=== PATIENT | female | born 2000 | race American Indian/Alaskan Native ===

== ENCOUNTER 2020-11-22 01:42 | Emergency (ER) | payer SELFPAY ==
[2020-11-22] MEDS ORDERED: ONDANSETRON 4 MG/2 ML INJ IV ONE (02:31)
[2020-11-22] MEDS ORDERED: MORPHINE 4 MG/1 ML INJ IV ONE (02:31)
[2020-11-22] MEDS ORDERED: SODIUM CHLORIDE 0.9% 1000 ML 1,000 ML IV ONE (02:31)
[2020-11-22 03:30] LABS: Basophils % (Auto) 0.8 % (0.0-1.8); Eosinophils # (Auto) 0.1 K/mm3 (0.0-0.4); Eosinophils % (Auto) 1.9 % (0.0-4.3); Hematocrit 31.8 % (30.3-42.9); Hemoglobin 10.7 gm/dl (10.1-14.3); Lymphocytes # (Auto) 1.6 K/mm3 (1.2-5.4); Lymphocytes % (Auto) 45.9 % (13.4-35.0); Mean Corpuscular HGB Conc 34 % (30-34); Mean Corpuscular Volume 82 fl (79-97); Monocytes # (Auto) 0.4 K/mm3 (0.0-0.8); Platelet Count 206 K/mm3 (140-440); Red Blood Count 3.88 M/mm3 (3.65-5.03); Red Cell Distribution Width 15.9 % (13.2-15.2)
[2020-11-22] MEDS ORDERED: KETOROLAC 30 MG/1 ML INJ IV ONE (03:37)
[2020-11-22 03:48] LABS: Alanine Aminotransferase 10 units/L (7-56); Albumin 4.4 g/dL (3.9-5); Blood Urea Nitrogen 14 mg/dL (7-17); Calcium 9.2 mg/dL (8.4-10.2); Hemolysis Index 6
[2020-11-22 03:55] LABS: BUN/Creatinine Ratio 20
[2020-11-22 04:15] LABS: Bilirubin,Urine NEG (Negative); Blood,Urine NEG (Negative); Color,Urine Yellow (Yellow); Mucus,Urine FEW /HPF; Protein,Urine <15 mg/dL mg/dL (Negative)
--- NOTE | 2020-11-22 05:03 | Cat Scan Report ---
CT ABDOMEN AND PELVIS WITH CONTRAST INDICATION: Diffuse lower abdominal pain. TECHNIQUE: Axial CT images were obtained through the abdomen and pelvis after 100 cc IV contrast. All CT scans at this location are performed using CT dose reduction for ALARA by means of automated exposure contr ol. COMPARISON: None available. FINDINGS: LOWER CHEST: No significant abnormality. LIVER: No significant abnormality. GALLBLADDER: No significant abnormality. BILE DUCTS: No significant abnormality. PANCREAS: No significant abnormality. SPLEEN: No significant abnormality. ADRENALS: No significant abnormality. RIGHT KIDNEY and URETER: No significant abnormality. LEFT KIDNEY and URETER: No significant abnormality. STOMACH and SMALL BOWEL: No significant abnormality. COLON: No significant abnormality. APPENDIX: Normal PERITONEUM: Small amount of right-sided free pelvic fluid No free air. No fluid collection. LYMPH NODES: No significant adenopathy. AORTA and ARTERIES: No significant abnormality. IVC and VEINS: No significant abnormality. URINARY BLADDER: No significant abnormality. REPRODUCTIVE ORGANS: 1.7 cm right ovarian corpus luteal cyst ADDITIONAL FINDINGS: None. SKELETAL SYSTEM: No significant abnormality. IMPRESSION: 1. 1.7 cm right ovarian corpus luteal cyst with small amount of right-sided free pelvic fluid. 2. No CT evidence for appendicitis or other acute inflammatory process Signer Name: Michael York MD Signed: 11/22/2020 4:59 AM Workstation Name: [id number]
--- NOTE | 2020-11-22 05:29 | Emergency Department Report ---
ED Abdominal Pain HPI - General Chief Complaint: Abdominal Pain Stated Complaint: ABDOMINAL PAIN Source: patient Mode of arrival: Ambulatory Limitations: No Limitations - History of Present Illness Initial Comments: Patient is a nulliparous 19-year-old -Maltese female with no past medical history presents to the ED with complaint of acute onset persistent severe diffuse lower abdominal pain for the last 2 weeks. Patient states that initially the pain was mild but subsequently the pain progressively got worse such that she has not been able to sleep in the last 8 hours. Patient denies dysuria, urinary frequency and urgency, constipation, chest pain or shortness of breath, fever, chills, vaginal bleeding, vaginal discharge, low back pain, diarrhea or sore throat, traumatic injury or heavy lifting. MD Complaint: abdominal pain (Diffuse low abdominal pain) -: Sudden, week(s) (2) Location: LLQ, RLQ, suprapubic Radiation: LLQ, RLQ, suprapubic Migration to: no migration Severity: severe Severity scale (0 -10): 9 Quality: aching, sharp Consistency: constant Improves With: nothing Worsens With: nothing Associated Symptoms: denies other symptoms, anorexia. denies: nausea, vomiting, diarrhea, fever, chills, constipation, dysuria, hematemesis, hematochezia, brooke cleve, hematuria, syncope, other - Related Data LMP Date: 11/08/20 Previous Rx's Medication Instructions Recorded Last Taken Type Acetaminophen/Codeine [Tylenol #3] 1 tab PO Q6H PRN #10 tab 10/09/15 Unknown Rx Ibuprofen [Motrin] 600 mg PO Q8H PRN #30 tablet 11/22/20 Unknown Rx Ondansetron [Zofran Odt] 4 mg PO Q6HR PRN #20 tab.rapdis 11/22/20 Unknown Rx traMADoL [Ultram] 50 mg PO Q6HR PRN #12 tablet 11/22/20 Unknown Rx Allergies Allergy/AdvReac Type Severity Reaction Status Date / Time No Known Allergies Allergy Verified 11/22/20 02:18 ED Review of Systems ROS: Stated complaint: ABDOMINAL PAIN Other details as noted in HPI Constitutional: denies: chills, fever Eyes: denies: eye pain, eye discharge, vision change ENT: denies: ear pain, throat pain Respiratory: denies: cough, shortness of breath, wheezing Cardiovascular: denies: chest pain, palpitations Endocrine: no symptoms reported Gastrointestinal: abdominal pain (Diffuse low abdominal pain). denies: nausea, vomiting, diarrhea, constipation, hematemesis, hematochezia Genitourinary: denies: urgency, dysuria, discharge Musculoskeletal: denies: back pain, joint swelling, arthralgia Skin: denies: rash, lesions Neurological: denies: headache, weakness, paresthesias Psychiatric: denies: anxiety, depression Hematological/Lymphatic: denies: easy bleeding, easy bruising ED Past Medical Hx - Past Medical History Previous Medical History?: No - Surgical History Past Surgical History?: No - Social History Smoking Status: Never Smoker Substance Use Type: None - Medications Home Medications: Home Medications Medication Instructions Recorded Confirmed Last Taken Type Acetaminophen/Codeine [Tylenol #3] 1 tab PO Q6H PRN #10 tab 10/09/15 Unknown Rx Ibuprofen [Motrin] 600 mg PO Q8H PRN #30 tablet 11/22/20 Unknown Rx Ondansetron [Zofran Odt] 4 mg PO Q6HR PRN #20 tab.rapdis 11/22/20 Unknown Rx traMADoL [Ultram] 50 mg PO Q6HR PRN #12 tablet 11/22/20 Unknown Rx ED Physical Exam - General Limitations: No Limitations General appearance: alert, in no apparent distress - Head Head exam: Present: atraumatic, normocephalic, normal inspection - Eye Eye exam: Present: normal appearance, PERRL, EOMI Pupils: Present: normal accommodation - ENT ENT exam: Present: normal exam, normal orophraynx, mucous membranes moist, TM's normal bilaterally, normal external ear exam - Neck Neck exam: Present: normal inspection, full ROM - Respiratory Respiratory exam: Present: normal lung sounds bilaterally. Absent: respiratory distress, wheezes, rales, rhonchi, chest wall tenderness, accessory muscle use, decreased breath sounds, prolonged expiratory - Cardiovascular Cardiovascular Exam: Present: regular rate, normal rhythm, normal heart sounds. Absent: systolic murmur, diastolic murmur, rubs, gallop - GI/Abdominal GI/Abdominal exam: Present: soft, tenderness (Palpable diffuse lower abdominal tenderness, no guarding or rebound), normal bowel sounds. Absent: guarding, rebound, hyperactive bowel sounds, hypoactive bowel sounds - Bi-manual exam: Present: other (Pelvic exam deferred, patient not sexually active since ) - Extremities Exam Extremities exam: Present: normal inspection, full ROM, normal capillary refill - Back Exam Back exam: Present: normal inspection, full ROM. Absent: tenderness, CVA tender ness (R), CVA tenderness (L), muscle spasm, paraspinal tenderness, vertebral tenderness - Neurological Exam Neurological exam: Present: alert, oriented X3, CN II-XII intact, normal gait, reflexes normal - Psychiatric Psychiatric exam: Present: normal affect, normal mood - Skin Skin exam: Present: warm, dry, intact, normal color. Absent: rash ED Course Vital Signs 11/22/20 02:11 Temperature 99.4 F Pulse Rate 84 Respiratory 24 Rate Blood Pressure 125/69 O2 Sat by Pulse 99 Oximetry ED Medical Decision Making - Lab Data Result diagrams: 11/22/20 02:49 11/22/20 02:49 - Radiology Data Radiology results: report reviewed, [place] [address] Cat Scan Report Signed Patient: DOUGLAS CARDENAS MR#: [id number] : 2000 Acct:[id number] Age/Sex: 19 / F ADM Date: 11/22/20 Loc: ED Attending Dr: Ordering Physician: SONALI MARCOS Date of Service: 11/22/20 Procedure(s): CT abdomen pelvis w con Accession Number(s): [id number] cc: SONALI MARCOS CT ABDOMEN AND PELVIS WITH CONTRAST INDICATION: Diffuse lower abdominal pain. TECHNIQUE: Axial CT images were obtained through the abdomen and pelvis after 100 cc IV contrast. All CT scans at this location are performed using CT dose reduction for ALARA by means of automated exposure control. COMPARISON: None available. FINDINGS: LOWER CHEST: No significant abnormality. LIVER: No significant abnormality. GALLBLADDER: No significant abnormality. BILE DUCTS: No significant abnormality. PANCREAS: No significant abnormality. SPLEEN: No significant abnormality. ADRENALS: No significant abnormality. RIGHT KIDNEY and URETER: No significant abnormality. LEFT KIDNEY and URETER: No significant abnormality. STOMACH and SMALL BOWEL: No significant abnormality. COLON: No significant abnormality. APPENDIX: Normal PERITONEUM: Small amount of right-sided free pelvic fluid No free air. No fluid collection. LYMPH NODES: No significant adenopathy. AORTA and ARTERIES: No significant abnormality. IVC and VEINS: No significant abnormality. URINARY BLADDER: No significant abnormality. REPRODUCTIVE ORGANS: 1.7 cm right ovarian corpus luteal cyst ADDITIONAL FINDINGS: None. SKELETAL SYSTEM: No significant abnormality. IMPRESSION: 1. 1.7 cm right ovarian corpus luteal cyst with small amount of right-sided free pelvic fluid. 2. No CT evidence for appendicitis or other acute inflammatory process Signer Name: Michael York MD Signed: 11/22/2020 4:59 AM Workstation Name: [id number] Transcribed By: DANIEL Dictated By: Michael York MD Electronically Authenticated By: Michael York MD Signed Date/Time: 11/22/20458 DD/ 6 TD/TT: Print Cancel - Medical Decision Making This is a nulliparous 19-year-old -Maltese female with no past medical history presents to the ED with complaint of acute onset persistent severe diffuse lower abdominal pain for the last 2 weeks. Patient states that initially the pain was mild but subsequently the pain progressively got worse such that she has not been able to sleep in the last 8 hours. In the ED, patient is alert and oriented x3 and is not in any distress. Patient however appears to be in significant pain. Lab test results were reviewed and are all nonactionable including urinalysis. Patient was treated for pain in the ED and also given normal saline 1 L IV bolus x1. Abdomen pelvis CT scan with contrast showed a 1.7 cm right ovarian corpus luteal cyst with small amount of right- sided free pelvic fluid. Otherwise no CT evidence for appendicitis or other acute inflammatory process. On reevaluation, patient's pain is well controlled medication. Patient will discharge home on pain medications and given a referral to the [facility] physician for follow-up in 3 to 5 days for reevaluation. Patient is advised to return to the ED immediately if symptoms get worse. - Differential Diagnosis Ovarian cyst; ; UTI; appendicitis; constipation; dysmenorrhea Critical care attestation.: If time is entered above; I have spent that time in minutes in the direct care of this critically ill patient, excluding procedure time. ED Disposition Clinical Impression: Abdominal pain, bilateral lower quadrant, Right ovarian cyst Disposition: HOME / SELF CARE / HOMELESS Is pt being admited?: No Does the pt Need Aspirin: No Condition: Stable Instructions: Abdominal Pain (ED), Ovarian Cyst, [id number], Abdominal Pain, Adult, [id number] Additional Instructions: All lab test results were reviewed and are all nonactionable. Abdomen pelvis CT scan with contrast showed a 1.7 cm right ovarian corpus luteal cyst with small amount of right-sided free pelvic fluid. No no other CT evidence for appendicitis or other acute inflammatory process was observed. Therefore your symptoms are likely due to the right ovarian cyst., Therefore take medications as needed for pain with food, drink plenty of fluids and follow-up with the [facility] physician Dr. Jerome as advised. Return to the ED immediately if symptoms get worse. Prescriptions: Ibuprofen [Motrin] 600 mg PO Q8H PRN #30 tablet PRN Reason: Pain traMADoL [Ultram] 50 mg PO Q6HR PRN #12 tablet PRN Reason: Severe pain Ondansetron [Zofran Odt] 4 mg PO Q6HR PRN #20 tab.rapdis PRN Reason: Nausea Referrals: LAUREN JEROME MD [Staff Physician] - 3-5 Days Time of Disposition: 05:32 Print Language: FIJIAN
[2020-11-22 06:31] VITALS: BP 125/73
== END 2020-11-22 06:30 | disposition home or self-care (01) ==
LOC: ED 01:42
DX: N83.201 Unspecified ovarian cyst, right side (principal); Z79.899 Other long term (current) drug therapy
CPT/HCPCS: 36415; 74177; 80053; 81001; 83690; 84703; 85025; 96361; 96374; 96375; 99284; J1885; J2270; J2405; J7030; Q9967

== ENCOUNTER 2021-06-17 21:30 | Emergency (ER) | payer SELFPAY ==
--- NOTE | 2021-06-17 22:47 | Emergency Department Report ---
ED General Adult HPI - General Stated complaint: MENTAL HEALTH CONCERNS PUI?: No Time Seen by Provider: 06/17/21 22:37 Source: family - History of Present Illness Initial comments: HPI OBTAIN FROM MOTHER WHO IS A POOR HISTORIAN STATES HER GRANDSON (ANOTHER DAUGHTER'S KID) ABOUT 3 WEEKS AGO AND TODAY PATIENT STATES SHE SEES PEOPLE AND ALSO THE GRANDSON. PER MOTHER AND NURSE, PATIENT REFUSES TO TALK TO ANYONE DURING MY ENCOUNTER, PATIENT REFUSES TO TALK TO ME OR FOLLOW ANY COMMANDS. - Related Data Previous Rx's Medication Instructions Recorded Last Taken Type Acetaminophen/Codeine [Tylenol #3] 1 tab PO Q6H PRN #10 tab 10/09/15 Unknown Rx Ibuprofen [Motrin] 600 mg PO Q8H PRN #30 tablet 11/22/20 Unknown Rx Ondansetron [Zofran Odt] 4 mg PO Q6HR PRN #20 tab.rapdis 11/22/20 Unknown Rx traMADoL [Ultram] 50 mg PO Q6HR PRN #12 tablet 11/22/20 Unknown Rx Allergies Allergy/AdvReac Type Severity Reaction Status Date / Time No Known Allergies Allergy Verified 11/22/20 02:18 ED Review of Systems ROS: Stated complaint: MENTAL HEALTH CONCERNS Other details as noted in HPI Comment: Unobtainable due to pts medical conditions (PATIENT REFUSES TO TALK TO ME) Constitutional: no symptoms reported ED Past Medical Hx - Past Medical History Previous Medical History?: Yes - Social History Smoking Status: Never Smoker Substance Use Type: None - Medications Home Medications: Home Medications Medication Instructions Recorded Confirmed Last Taken Type Acetaminophen/Codeine [Tylenol #3] 1 tab PO Q6H PRN #10 tab 10/09/15 Unknown Rx Ibuprofen [Motrin] 600 mg PO Q8H PRN #30 tablet 11/22/20 Unknown Rx Ondansetron [Zofran Odt] 4 mg PO Q6HR PRN #20 tab.rapdis 11/22/20 Unknown Rx traMADoL [Ultram] 50 mg PO Q6HR PRN #12 tablet 11/22/20 Unknown Rx ED Physical Exam - General General appearance: alert, in no apparent distress - Head Head exam: Present: atraumatic, normocephalic, normal inspection - Eye Eye exam: Present: normal appearance, PERRL, EOMI Pupils: Present: normal accommodation - Neck Neck exam: Present: full ROM (PATIENT WALKING AROUND) - Extremities Exam Extremities exam: Present: normal inspection, full ROM, other (PATIENT WALKING AROUND IN NO SIGNS OF DISCOMFORT) - Back Exam Back exam: Present: full ROM - Neurological Exam Neurological exam: Present: alert, CN II-XII intact, normal gait - Psychiatric Psychiatric exam: Present: other (REFUSES TO TALK) ED Course Vital Signs 06/17/21 23:37 Temperature 98 F Pulse Rate 86 Respiratory 16 Rate Blood Pressure 128/88 [Right] O2 Sat by Pulse 100 Oximetry - Reevaluation(s) Reevaluation #1: 06/18/21 04:46 PATIENT IS MEDICALLY CLEARED; PENDING MENTAL HEALTH EVALUATION. AT 0600, I WILL SIGN OUT MY PATIENT CARE TO MY COLLEAGUE DR. PRUITT 06/18/21 05:51 STILL PENDING MENTAL HEALTH EVALUATION; WILL SIGN OUT TO MY COLLEAGUE DR. PRUITT ED Medical Decision Making - Lab Data Result diagrams: 06/17/21 23:37 06/17/21 23:37 Critical care attestation.: If time is entered above; I have spent that time in minutes in the direct care of this critically ill patient, excluding procedure time. ED Disposition Clinical Impression: Visual hallucination Condition: Stable Referrals: CATHRYN VENEGAS MD [Primary Care Provider] - 3-5 Days
[2021-06-18 00:03] LABS: Basophils % (Auto) 0.5 % (0.0-1.8); Eosinophils % (Auto) 0.1 % (0.0-4.3); Hematocrit 35.7 % (30.3-42.9); Hemoglobin 11.4 gm/dl (10.1-14.3); Lymphocytes % (Auto) 18.2 % (13.4-35.0); Mean Corpuscular HGB Conc 32 % (30-34); Mean Corpuscular Volume 81 fl (79-97); Monocytes # (Auto) 0.4 K/mm3 (0.0-0.8); Monocytes % (Auto) 8.4 % (0.0-7.3); Platelet Count 229 K/mm3 (140-440); Red Cell Distribution Width 17.7 % (13.2-15.2)
[2021-06-18 00:19] LABS: Alanine Aminotransferase 9 units/L (7-56); Albumin 4.9 g/dL (3.9-5); BUN/Creatinine Ratio 14; Blood Urea Nitrogen 11 mg/dL (7-17); Calcium 9.1 mg/dL (8.4-10.2); Hemolysis Index 2
--- NOTE | 2021-06-18 09:28 | Consultation ---
History of Present Illness - Reason for Consult Consult date: 06/18/21 Reason for consult: hallucinating - History of Present Psychiatric Illness HPI: HPI OBTAIN FROM MOTHER WHO IS A POOR HISTORIAN STATES HER GRANDSON (ANOTHER DAUGHTER'S KID) ABOUT 3 WEEKS AGO AND TODAY PATIENT STATES SHE SEES PEOPLE AND ALSO THE GRANDSON. PER MOTHER AND NURSE, PATIENT REFUSES TO TALK TO ANYONE. During my encounter with this patient, she is sitting in the seclusion room. She is awake and sitting erect with linen over her head. She does not speak to me or acknowledge my presence when I call her name. She does shift positions, but does not respond. Will start med management and recommend inpatient psych treatment based on report from mother. PAST PSYCHIATRIC HISTORY Unable to obtain PAST MEDICAL HISTORY: None reported Family Psychiatric History: None reported or documented SOCIAL HISTORY Unable to obtain REVIEW OF SYSTEMS Unable to obtain MENTAL STATUS EXAMINATION Unable to obtain Assessment and Plan Delusional Disorder Treatment Plan 1013 Start Olanzapine 5mg po daily Start Doxepin 10mg po qhs Medical: Per primary Sitter: Defer to primary Disposition: Recommend acute psychiatric inpatient treatment. Will follow. Thanks. Case staffed with Dr. Velasco Medications and Allergies Allergies Allergy/AdvReac Type Severity Reaction Status Date / Time No Known Allergies Allergy Verified 11/22/20 02:18 Home Medications Medication Instructions Recorded Confirmed Last Taken Type Acetaminophen/Codeine [Tylenol #3] 1 tab PO Q6H PRN #10 tab 10/09/15 Unknown Rx Ibuprofen [Motrin] 600 mg PO Q8H PRN #30 tablet 11/22/20 Unknown Rx Ondansetron [Zofran Odt] 4 mg PO Q6HR PRN #20 tab.rapdis 11/22/20 Unknown Rx traMADoL [Ultram] 50 mg PO Q6HR PRN #12 tablet 11/22/20 Unknown Rx Mental Status Exam - Vital signs Last Vital Signs Temp 98 F 06/17/21 23:37 Pulse 86 06/17/21 23:37 Resp 16 06/17/21 23:37 BP 128/88 06/17/21 23:37 Pulse Ox 97 06/18/21 08:15 Results Result Diagrams: 06/17/21 23:37 06/17/21 23:37 Abnormal lab results 06/17/21 06/17/21 Range/Units 23:37 23:37 MCH 26 L (28-32) pg RDW 17.7 H (13.2-15.2) % Gem % (Auto) 8.4 H (0.0-7.3) % Lymph # (Auto) 1.0 L (1.2-5.4) K/mm3 Seg Neutrophils % 72.8 H (40.0-70.0) % Carbon Dioxide 21 L (22-30) mmol/L All other labs normal.
[2021-06-18] MEDS ORDERED: LORazepam 2 MG/ML VIAL IM PRN (14:57)
[2021-06-18] MEDS ORDERED: HALOPERIDOL LACTATE 5 MG/1 ML INJ IM PRN (14:57)
--- NOTE | 2021-06-18 15:01 | Event Note ---
Date: 06/18/21 [id number] evaluation performed. Patient sitting down, breathing spontaneously, and in no acute distress. She is refusing vital signs and refu sing to provide a urine sample. She is currently on a 1013. Serum Tylenol, aspirin, test have not been obtained. COVID swab was obtained. Patient is in seclusion for attempting to scratch and assault nursing staff members, and attempting to run away. This patient does not respond to verbal de-escalation techniques or show of force. Nursing team is instructed to obtain repeat vital signs, and patient will be medicated with as needed haloperidol and Ativan if necessary. Follow-up on serum hCG, Tylenol, aspirin levels. Vital Signs 06/17/21 06/18/21 23:37 08:15 Temperature 98 F Pulse Rate 86 Respiratory 16 Rate Blood Pressure 128/88 [Right] O2 Sat by Pulse 100 97 Oximetry Lab Results 06/17/21 06/17/21 06/18/21 Range/Units 23:37 23:37 10:11 WBC 5.2 (4.5-11.0) K/mm3 RBC 4.40 (3.65-5.03) M/mm3 Hgb 11.4 (10.1-14.3) gm/dl Hct 35.7 (30.3-42.9) % MCV 81 (79-97) fl MCH 26 L (28-32) pg MCHC 32 (30-34) % RDW 17.7 H (13.2-15.2) % Plt Count 229 (140-440) K/mm3 Lymph % (Auto) 18.2 (13.4-35.0) % Taylor % (Auto) 8.4 H (0.0-7.3) % Eos % (Auto) 0.1 (0.0-4.3) % Baso % (Auto) 0.5 (0.0-1.8) % Lymph # (Auto) 1.0 L (1.2-5.4) K/mm3 Taylor # (Auto) 0.4 (0.0-0.8) K/mm3 Eos # (Auto) 0.0 (0.0-0.4) K/mm3 Baso # (Auto) 0.0 (0.0-0.1) K/mm3 Seg Neutrophils % 72.8 H (40.0-70.0) % Seg Neutrophils # 3.8 (1.8-7.7) K/mm3 Sodium 139 (137-145) mmol/L Potassium 3.7 (3.6-5.0) mmol/L Chloride 100.7 (98-107) mmol/L Carbon Dioxide 21 L (22-30) mmol/L Anion Gap 21 mmol/L BUN 11 (7-17) mg/dL Creatinine 0.8 (0.6-1.2) mg/dL Estimated GFR > 60 ml/min BUN/Creatinine Ratio 14 % Glucose 85 (65-100) mg/dL Calcium 9.1 (8.4-10.2) mg/dL Total Bilirubin 0.50 (0.1-1.2) mg/dL AST 17 (5-40) units/L ALT 9 (7-56) units/L Alkaline Phosphatase 48 (35-129) units/L Total Protein 7.3 (6.3-8.2) g/dL Albumin 4.9 (3.9-5) g/dL Albumin/Globulin Ratio 2.0 % SARS-CoV-2 (PCR) Negative (Negative) Lab Results 06/17/21 06/17/21 06/18/21 Range/Units 23:37 23:37 10:11 WBC 5.2 (4.5-11.0) K/mm3 RBC 4.40 (3.65-5.03) M/mm3 Hgb 11.4 (10.1-14.3) gm/dl Hct 35.7 (30.3-42.9) % MCV 81 (79-97) fl MCH 26 L (28-32) pg MCHC 32 (30-34) % RDW 17.7 H (13.2-15.2) % Plt Count 229 (140-440) K/mm3 Lymph % (Auto) 18.2 (13.4-35.0) % Taylor % (Auto) 8.4 H (0.0-7.3) % Eos % (Auto) 0.1 (0.0-4.3) % Baso % (Auto) 0.5 (0.0-1.8) % Lymph # (Auto) 1.0 L (1.2-5.4) K/mm3 Taylor # (Auto) 0.4 (0.0-0.8) K/mm3 Eos # (Auto) 0.0 (0.0-0.4) K/mm3 Baso # (Auto) 0.0 (0.0-0.1) K/mm3 Seg Neutrophils % 72.8 H (40.0-70.0) % Seg Neutrophils # 3.8 (1.8-7.7) K/mm3 Sodium 139 (137-145) mmol/L Potassium 3.7 (3.6-5.0) mmol/L Chloride 100.7 (98-107) mmol/L Carbon Dioxide 21 L (22-30) mmol/L Anion Gap 21 mmol/L BUN 11 (7-17) mg/dL Creatinine 0.8 (0.6-1.2) mg/dL Estimated GFR > 60 ml/min BUN/Creatinine Ratio 14 % Glucose 85 (65-100) mg/dL Calcium 9.1 (8.4-10.2) mg/dL Total Bilirubin 0.50 (0.1-1.2) mg/dL AST 17 (5-40) units/L ALT 9 (7-56) units/L Alkaline Phosphatase 48 (35-129) units/L Total Protein 7.3 (6.3-8.2) g/dL Albumin 4.9 (3.9-5) g/dL Albumin/Globulin Ratio 2.0 % HCG, Quant (0-4) mIU/mL Urine Bilirubin (Negative) Urine RBC (Auto) (0.0-6.0) /HPF U Epithel Cells (Auto) (0-13.0) /HPF Salicylates (2.8-20.0) mg/dL Acetaminophen (10.0-30.0) ug/mL SARS-CoV-2 (PCR) Negative (Negative) 06/18/21 06/18/21 06/18/21 Range/Units 15:53 15:53 16:10 WBC (4.5-11.0) K/mm3 RBC (3.65-5.03) M/mm3 Hgb (10.1-14.3) gm/dl Hct (30.3-42.9) % MCV (79-97) fl MCH (28-32) pg MCHC (30-34) % RDW (13.2-15.2) % Plt Count (140-440) K/mm3 Lymph % (Auto) (13.4-35.0) % Taylor % (Auto) (0.0-7.3) % Eos % (Auto) (0.0-4.3) % Baso % (Auto) (0.0-1.8) % Lymph # (Auto) (1.2-5.4) K/mm3 Taylor # (Auto) (0.0-0.8) K/mm3 Eos # (Auto) (0.0-0.4) K/mm3 Baso # (Auto) (0.0-0.1) K/mm3 Seg Neutrophils % (40.0-70.0) % Seg Neutrophils # (1.8-7.7) K/mm3 Sodium (137-145) mmol/L Potassium (3.6-5.0) mmol/L Chloride (98-107) mmol/L Carbon Dioxide (22-30) mmol/L Anion Gap mmol/L BUN (7-17) mg/dL Creatinine (0.6-1.2) mg/dL Estimated GFR ml/min BUN/Creatinine Ratio % Glucose (65-100) mg/dL Calcium (8.4-10.2) mg/dL Total Bilirubin (0.1-1.2) mg/dL AST (5-40) units/L ALT (7-56) units/L Alkaline Phosphatase (35-129) units/L Total Protein (6.3-8.2) g/dL Albumin (3.9-5) g/dL Albumin/Globulin Ratio % HCG, Quant < 2 (0-4) mIU/mL Urine Bilirubin Neg (Negative) Urine RBC (Auto) 2.0 (0.0-6.0) /HPF U Epithel Cells (Auto) 9.0 (0-13.0) /HPF Salicylates (2.8-20.0) mg/dL Acetaminophen < 5.0 L (10.0-30.0) ug/mL SARS-CoV-2 (PCR) (Negative) 06/18/21 Range/Units Unknown WBC (4.5-11.0) K/mm3 RBC (3.65-5.03) M/mm3 Hgb (10.1-14.3) gm/dl Hct (30.3-42.9) % MCV (79-97) fl MCH (28-32) pg MCHC (30-34) % RDW (13.2-15.2) % Plt Count (140-440) K/mm3 Lymph % (Auto) (13.4-35.0) % Taylor % (Auto) (0.0-7.3) % Eos % (Auto) (0.0-4.3) % Baso % (Auto) (0.0-1.8) % Lymph # (Auto) (1.2-5.4) K/mm3 Taylor # (Auto) (0.0-0.8) K/mm3 Eos # (Auto) (0.0-0.4) K/mm3 Baso # (Auto) (0.0-0.1) K/mm3 Seg Neutrophils % (40.0-70.0) % Seg Neutrophils # (1.8-7.7) K/mm3 Sodium (137-145) mmol/L Potassium (3.6-5.0) mmol/L Chloride (98-107) mmol/L Carbon Dioxide (22-30) mmol/L Anion Gap mmol/L BUN (7-17) mg/dL Creatinine (0.6-1.2) mg/dL Estimated GFR ml/min BUN/Creatinine Ratio % Glucose (65-100) mg/dL Calcium (8.4-10.2) mg/dL Total Bilirubin (0.1-1.2) mg/dL AST (5-40) units/L ALT (7-56) units/L Alkaline Phosphatase (35-129) units/L Total Protein (6.3-8.2) g/dL Albumin (3.9-5) g/dL Albumin/Globulin Ratio % HCG, Quant (0-4) mIU/mL Urine Bilirubin (Negative) Urine RBC (Auto) (0.0-6.0) /HPF U Epithel Cells (Auto) (0-13.0) /HPF Salicylates < 0.3 L (2.8-20.0) mg/dL Acetaminophen (10.0-30.0) ug/mL SARS-CoV-2 (PCR) (Negative) Serum toxicology study is unremarkable. test is negative. Patient remains medically suitable for psychiatric disposition at this time. The emergency room will follow along as the patient provides a UA, UDS. However, these tests are not necessary for medical clearance
[2021-06-18 16:44] LABS: Bilirubin,Urine NEG (Negative); Blood,Urine NEG (Negative); Color,Urine Yellow (Yellow); Mucus,Urine 1+ /HPF; Urobilinogen,Urine < 2.0 mg/dL (<2.0)
[2021-06-18 17:23] LABS: Amphetamine Screen,Urine PRESUMPTIVE NEGATIVE; Benzodiazepines Screen,Urine PRESUMPTIVE NEGATIVE; Cannabinoid Screen,Urine PRESUMPTIVE NEGATIVE; Cocaine Screen,Urine PRESUMPTIVE NEGATIVE; Methadone Screen,Urine PRESUMPTIVE NEGATIVE; Opiate Screen,Urine PRESUMPTIVE NEGATIVE
[2021-06-18] MEDS: DOXEPIN 10 MG CAP PO SCH (22:00)
--- NOTE | 2021-06-19 10:01 | Progress Note ---
Subjective - Reason for Consult Consult date: 06/19/21 Reason for consult: psychosis - Chief Complaint Chief complaint: The patient was seen today. She is in the seclusion room. She would not respond after calling her name several times and shaking her. She shifts but doesn't speak. REVIEW OF SYSTEMS Unable to obtain MENTAL STATUS EXAMINATION Unable to obtain Assessment and Plan Delusional Disorder Treatment Plan [address] 125mg po BID Olanzapine 5mg po daily Doxepin 10mg po qhs Medical: Per primary Sitter: Defer to primary Disposition: Recommend acute psychiatric inpatient treatment. Will follow. Thanks. Case staffed with Dr. Velasco Mental Status Exam - Vital signs Last Vital Signs Temp 98.6 F 06/19/21 09:43 Pulse 109 H 06/19/21 09:48 Resp 16 06/19/21 09:43 BP 124/69 06/19/21 09:43 Pulse Ox 98 06/19/21 09:43
--- NOTE | 2021-06-19 13:06 | Event Note ---
Date: 06/19/21 Ms. Watkins is seen and evaluated by me this afternoon and she denies any homicidal ideation to me. When I went into her room in the [facility] area patient was seen sitting up and covered up in a white blankets. I asked pt to uncover her face so she can talk to me that i will like to be able to put her face to her name. She asked me what is her and i told her. She says is not ready to uncover her face until i'm able to answer all her questions. I told her i will try. She proceeded and says she will like to know who I am i told her about myself been a doctor who have taken care of patient with psychiatry need and medical need at the same time and that i have been doing this for the last 10 years. I persuaded her that she can ask me all her question and all her need so i can see if i can help her. I spent an extended period of time with this patient who eventually told me that she is depressed. She says she needs some help. She told me that she has offended her parents. She asked me if they will ever forgive her. I immediately told her that since they her parents he likely will forgive her. That she only need to realize her mistake and apologize to them. I asked her what was the offense but she will not tell me. She was still covered up at this time. Toward the end of our conversation patient told me that she was ready to today. I told her immediately that that is not necessary and asked her why and that i'm here to help her get better. I also asked her if she has a plan but she denied having any plan. Patient asked me if I was going to come back to see her if she uncover her face for more conversation with me. I said yes and she uncovered her face. At this point I told the patient that I will come back to reevaluated her later today. She then asked me why she needed to eat her food that was in the room and I told her that she needed to eat for energy. She told me that she is have abdominal burning discomfort so i told her nothing eating could be part of while she is having the burning and that she needs to eat. She promised she will try later. Patient insisted that I come back to see her. She however denies any other modifying or associated factors.
[2021-06-19] MEDS: DIVALPROEX DR 125 MG TAB PO SCH ×2 (15:12→22:10)
[2021-06-19] MEDS: DOXEPIN 10 MG CAP PO SCH (22:10)
[2021-06-20] MEDS: DIVALPROEX DR 125 MG TAB PO SCH (09:50)
[2021-06-20 10:06] VITALS: BP 140/90
== END 2021-06-20 10:42 ==
LOC: ED 21:30
DX: R44.1 Visual hallucinations (principal)
CPT/HCPCS: 36415; 80053; 85025; 96372; 99285; J1630; J2060; 80307; 80320; 81001; 84702; G0480; U0003